=== PATIENT | male | born 1985 | race Caucasian/White ===

== ENCOUNTER 2024-05-15 09:32 | Emergency (ER) | payer OTHER, SELFPAY ==
[2024-05-15 09:47] VITALS: BP 169/104; PULSE 75; RESP 14; TEMP 36.9; O2SAT 98
[2024-05-15 11:42] VITALS: BP 156/108; PULSE 70; RESP 16; TEMP 36.6; O2SAT 100
--- NOTE | 2024-05-15 12:58 | ED.NAVMDI ---
HPI - Nausea/Vomiting/Diarrhea General Chief complaint: Nausea/Vomiting/Diarrhea Stated complaint: N/V Time Seen by Provider: 05/15/24 11:59 History of Present Illness HPI Narrative: 38-year-old otherwise healthy male presenting to the emergency department with symptoms of nausea, vomiting and loose stool. He thinks he had food poisoning for last couple days. Had eggs that he bought a [employer] on Saturday and then several hours later started developing intractable nausea and vomiting as well as loose watery stool. No fever abdominal pain. He states that he has been vomiting since then went to urgent care and received some Zofran which did help his nauseousness but he is still feeling dehydrated. Denies any further diarrhea episodes, no bloody diarrhea. No fever chills. No abdominal pain but states that his GERD has been acting up on him as he is trying to sleep. Patient is requesting hydration. Was swabbed for COVID Flu RSV yesterday negative. Related Data Allergies Allergy/AdvReac Type Severity Reaction Status Date / Time No Known Allergies Allergy Verified 05/15/24 11:46 Review of Systems Review of Systems: as reviewed above in HPI Exam Narrative: GENERAL: [Well-appearing, well-nourished, and in no acute distress.] HEAD: [Normocephalic, atraumatic.] EYES: [PERRLA and EOMI.] ENT: Nares clear, no rhinorrhea or epistaxis. Mucous membranes dry. NECK: Supple. CHEST: [Clear to auscultation. No respiratory distress.] HEART: [Regular rate and rhythm]. No murmur heard. [Normal peripheral pulses.] ABDOMEN: [Soft, nondistended], [nontender], [No rigidity or guarding] EXTREMITIES: Normal range of motion. [No edema.] SKIN: Warm, dry, no rash. NEURO: [No focal deficits]. Alert and oriented [x3.] PSYCH: [Normal mood and affect.] Course Vital Signs Vital signs: Vital Signs Temperature 36.9 C 05/15/24 09:47 Pulse Rate 75 05/15/24 09:47 Respiratory Rate 14 05/15/24 09:47 Blood Pressure 169/104 H 05/15/24 09:47 Pulse Oximetry 98 05/15/24 09:47 Oxygen Delivery Room Air 05/15/24 09:47 Temperature 36.6 C 05/15/24 11:42 Pulse Rate 64 05/15/24 13:54 Respiratory Rate 14 05/15/24 13:54 Blood Pressure 121/65 05/15/24 13:54 Pulse Oximetry 100 05/15/24 13:54 Oxygen Delivery Room Air 05/15/24 11:42 MDM - Nausea/Vomiting/Diarrhea MDM Narrative Medical decision making narrative: 38-year-old otherwise healthy male presenting to the ER with signs and symptoms of viral versus bacterial gastroenteritis. He has had nausea and vomiting for last couple days associated with some loose watery stool that has since resolved. No bloody diarrhea urinary symptoms. No fever. He has a soft nontender nondistended abdomen. He is afebrile here with normal vital signs aside from some stable hypertension. Likely source from with recent eggs that he ate as he had symptoms several hours after eating them. He is otherwise well-appearing but does appear dehydrated. IV was established and he was given hydration with a L of fluid as well as L of D5 LR. He was given Pepcid for his GERD symptoms, did not need any more Zofran as he was feeling better without any persistent nausea. Laboratory studies including CBC and CMP were obtained to make sure there is no electrolyte or kidney/ liver derangements. Patient's laboratory studies are reassuring, he is a minor leukocytosis likely reactive from his gastroenteritis type symptoms. Normal kidney and renal function panel. Normal electrolytes. He felt significantly improved with the hydration and D5 fluids. He is safe and stable for discharge home at this time. Still has prescriptions for Zofran home and does not request any additional medications at this time. Given return precautions and discharge. Medical Records Attestation: I reviewed the patient's medical records. Lab Data Attestation: I reviewed the patient's lab results. 05/15/24 13:12 05/15/24 13:12 Labs: Lab Results 05/15/24 Range/Units 13:12 WBC 11.5 H (4.5-10.0) K/mm3 RBC 5.17 (4.6-6.20) M/mm3 Hgb 15.8 (14.0-18.0) g/dL Hct 46.2 (42.0-52.0) % MCV 89.4 (80-100) fl MCH 30.6 (26-34) pg MCHC 34.2 (32-36) g/dl RDW 11.7 (11.5-14.5) % Plt Count 376 H (150-375) k/mm3 MPV 9.3 (7.4-10.4) fl Immature Gran % (Auto) 0.3 (0-0.5) % Neut % (Auto) 71.5 (45.5-73.1) % Lymph % (Auto) 20.0 (18.3-44.2) % Clay % (Auto) 7.7 (2.6-8.5) % Eos % (Auto) 0.1 (0-4.4) % Baso % (Auto) 0.4 (0.2-1.2) % Lymph # (Auto) 2.30 (0.9-3.2) K/mm3 Clay # (Auto) 0.9 H (0.1-0.6) K/mm3 Eos # (Auto) 0.0 (0-0.3) K/mm3 Baso # (Auto) 0.1 (0.0-0.1) K/mm3 Abs Immat Gran (auto) 0.03 (0.00-0.031) K/mm3 Absolute Neuts (auto) 8.2 H (1.3-6.7) K/mm3 Absolute Nucleated RBC 0.000 (0.0-0.012) K/mm3 Nucleated RBC % 0.0 (0.0-0.2) % Sodium 138 (137-145) mmol/L Potassium 4.1 (3.4-5.0) mmol/L Chloride 96 L (98-107) mmol/L Carbon Dioxide 27 (22-30) mmol/L Anion Gap 15 H (4-12) mmol/L BUN 22 H (9-20) mg/dL Creatinine 0.88 (0.7-1.3) mg/dL Estim Creat Clear Calc 121 ml/min Estimated GFR > 60 (59 - ) Glucose 120 H (65-110) mg/dL Calcium 9.9 (8.4-10.2) mg/dL Magnesium 2.3 (1.6-2.3) mg/dL Total Bilirubin 1.3 (0.2-1.3) mg/dL AST 56 (17-59) U/L ALT 59 H (6-50) U/L Alkaline Phosphatase 76 (38-126) U/L Total Protein 9.0 H (6.3-8.2) g/dL Albumin 5.0 (3.5-5.1) g/dL Discharge Plan Discharge Clinical Impression: Gastroenteritis, Food poisoning Patient Disposition: Home, Self-Care Condition: Stable Instructions: Antibiotic Form, Acute Nausea and Vomiting (ED), Acute Diarrhea (ED) Additional Instructions: Follow-up with your regular doctor on outpatient basis, return with any new or worsening concerns such as inability to tolerate any oral intake, profound nausea, vomiting diarrhea or intractable fever. Patient Language: South Korean Follow-up/Referrals: PHYSICIAN,FLIGHT LINE MECHANIC [Non-Staff] - Time of Disposition: 14:10
[2024-05-15] MEDS: FAMOTIDINE 20 MG/2 ML VIAL IV PUSH (13:16)
[2024-05-15 13:17] LABS: Basophils Absolute Auto 0.1 K/mm3 (0.0-0.1); Basophils Percent Auto 0.4 % (0.2-1.2); Eosinophils Percent Auto 0.1 % (0-4.4); Hematocrit 46.2 % (42.0-52.0); Hemoglobin 15.8 g/dL (14.0-18.0); Immature Granulocyte Absolute 0.03 K/mm3 (0.00-0.031); Immature Granulocyte Percent A 0.3 % (0-0.5); Mean Corpuscular HGB Conc 34.2 g/dl (32-36); Mean Corpuscular Hemoglobin 30.6 pg (26-34); Mean Corpuscular Volume 89.4 fl (80-100); Mean Platelet Volume 9.3 fl (7.4-10.4); Monocytes Absolute Auto 0.9 K/mm3 (0.1-0.6); Monocytes Percent Auto 7.7 % (2.6-8.5); Neutrophils Absolute Auto 8.2 K/mm3 (1.3-6.7); Neutrophils Percent Auto 71.5 % (45.5-73.1); Platelet Count Result 376 k/mm3 (150-375); Red Blood Count 5.17 M/mm3 (4.6-6.20); Red Cell Distribution Width 11.7 % (11.5-14.5); White Blood Count 11.5 K/mm3 (4.5-10.0)
[2024-05-15] MEDS: DEXTROSE 5%/LACTATED RINGERS 1,000 ML 1000 ML IV CONT (13:17)
[2024-05-15 13:29] LABS: Alanine Aminotransferase 59 U/L (6-50); Alkaline Phosphatase 76 U/L (38-126); Anion Gap 15 mmol/L (4-12); Aspartate Amino Transferase 56 U/L (17-59); Bilirubin,Total 1.3 mg/dL (0.2-1.3); Blood Urea Nitrogen 22 mg/dL (9-20); Calcium 9.9 mg/dL (8.4-10.2); Carbon Dioxide 27 mmol/L (22-30); Chloride 96 mmol/L (98-107); Estimated CRCL calculation 121 ml/min; Estimated Glomerular Filt Rate > 60; Glucose 120 mg/dL (65-110); Magnesium 2.3 mg/dL (1.6-2.3); Potassium 4.1 mmol/L (3.4-5.0); Sodium 138 mmol/L (137-145)
--- OUTSIDE RECORDS SUMMARY | 2024-05-15 13:31 | XMS_ITS | Encounter Summary ---
Author Organization [facility] Healthcare Address [address] [place] [id number] Care Team Providers Care Industrial Chemist Name Role Phone No, Physician Primary Care Provider [phone] Reason for Visit * Reason Comments Flu Symptoms Patient here for c/o flu sx that started Encounter Details Date Type Department Care Team (Late st Contact Info) Description 05/14/2024 10:15 AM COMPLIANCE CLERK Office Visit [facility] at [address] [address] Yvonne Campos NP [address] [place] [address] [address] [place] [address] Nausea and vomiting, unspecified vomiting type (Primary Dx) Social History Tobacco Use Types Packs/Day Years Used Date Smoking Tobacco: Never Assessed Personal Safety Answer Date Recorded Have you ever been in or are you currently in a harmful physical or emotional relationship or is someone making you feel afraid or unsafe? Denies 09/27/2023 Sex and Gender Information Value Date Recorded Sex Assigned at Not on file Legal Sex Male 12:11 PM CDT Gender Identity Not on file Sexual Orientation Not on file documented as of this encounter Last Filed Vital Signs Vital Sign Reading Time Taken Comments Blood Pressure 142/78 05/14/2024 9:48 AM COMPLIANCE CLERK Pulse 78 05/14/2024 9:48 AM COMPLIANCE CLERK Temperature 36.8 C (98.2 F) 05/14/2024 9:48 AM COMPLIANCE CLERK Respiratory Rate 20 05/14/2024 9:48 AM COMPLIANCE CLERK Oxygen Saturation 99% 05/14/2024 9:48 AM COMPLIANCE CLERK Inhaled Oxygen Concentration - - Weight 113.4 kg (250 lb) 05/14/2024 9:48 AM COMPLIANCE CLERK Height 182.9 cm (6') 05/14/2024 9:48 AM COMPLIANCE CLERK Body Mass Index 33.91 05/14/2024 9:48 AM COMPLIANCE CLERK documented in this encounter Patient Instructions * Patient Instructions* Yvonne Campos NP - 05/14/2024 10:15 AM COMPLIANCE CLERK If you have no improvement or worsening of your symptoms, please follow up with your Primary Care Provider, [facility] Care and or Emergency Room. I strive to provide you with EXCELLENT service. You may receive a survey after your visit today. If you cannot rate your experience as EXCELLENT, please let us know how we can improve and better meet your needs. Thank you for choosing [facility]! It was my pleasure to see you today, I hope you feel better soon! Yvonne Campos SANE NURSE Vomiting Adult Start with clear fluids if you are able to keep these down then you may slowly advance as tolerated. For vomiting: The steward is to give small amounts at a time. Because the stomach is upset, it will vomit when it fills. Prevent this by giving only 1 inch (3 cm) in a cup at a time. Wait 10 to 15 minutes then give another small amount. This will keep the stomach empty, so you are less likely to vomit.If you do not vomit after this, you can slowly increase the amount in the cup each time. Medicines t o stop vomiting can help. See your doctor for a recheck visit tomorrow or as soon as possible. Call your doctor or return to the emergency department if worse or: 1. Fever (temperature greater than 102??F [39??C]) occurs. 2. There is blood in the stool (poop) or diarrhea or if the stool (poop) is black. 3. Lots of diarrhea occurs. 4. Lots of vomiting occurs or the vomit is bloody or green or looks like chocolate or coffee. 5. The belly looks very full or big. 6. Symptoms of dehydration occurs (eg, inside of the mouth looks sticky, urinating less, weakness, tiredness, pale color, eyes look hollow or sunken). 7. Abdominal pain is worse. LIANCE CLERK * Attachments The following attachments cannot be sent through Care Everywhere. * Acute Nausea and Vomiting (AfterCare(R) Instructions(ER/ED)) ([place]) documented in this encounter Ordered Prescriptions Prescription Sig Dispense Quantity Refills Last Filled Start Date End Date ondansetron ODT (ZOFRAN-ODT) 4 mg disintegrating tabletIndications:Na usea and vomiting, unspecified vomiting type Take 1 tablet (4 mg total) by mouth every 6 (six) hours as needed for nausea or vomiting 20 tablet 05/14/2024 documented in this encounter Progress Notes * Yvonne Campos, [employer] - 05/14/2024 10:15 AM CST Images from the original note were not included. Subjective/Objective Patient ID: Ricky Isaac is a 38 y.o. male. This patient has verbally consented to recording this visit in order to utilize AI technology in generating this note. Chief Complaint Flu Symptoms (Patient here for c/o flu sx that started ) History of Present Illness Ricky Isaac is a 38 year old male who presents with vomiting and inability to keep fluids down. He has been experiencing persistent vomiting and an inability to retain any fluids or solids since Saturday. The vomiting occurs shortly after consuming fluids, and he has been unable to find relief despite attempts to hydrate with Pedialyte popsicles and ice cubes. No fever has been noted, and he has been regularly monitoring his temperature. The symptoms began suddenly with an initial episode of diarrhea on the first day. He describes a sensation of indigestion rather than pain, with a persistent feeling of a 'bubble' in his abdomen. Denies abdominal pain. Attempts to burp often trigger further vomiting. He notes a significant decrease in urination, with urine being very dark in color and infrequent, indicating possible dehydration. He has been using hot water on his stomach to ease discomfort. He has a history of occasional marijuana use but does not believe it triggers his symptoms. He recalls that smoking marijuana helped alleviate symptoms during a previous episode of food poisoning. Review of Systems All other systems reviewed and are negative. Physical Exam HEENT: Fair amount of saliva in throat. SKIN: Improvement in skin color, no longer pale. Physical Exam Vitals reviewed. Constitutional: Appearance: Normal appearance. He is normal weight. He is not ill-appearing. HENT: Head: Normocephalic. Right Ear: Ear canal and external ear normal. A middle ear effusion (moderate serous) is present. Tympanic membrane is not erythematous. Left Ear: Ear canal and external ear normal. A middle ear effusion (moderate serous) is present. Tympanic membrane is not erythematous. Nose: Nose normal. Mouth/Throat: Mouth: Mucous membranes are moist. Pharynx: Oropharynx is clear. Eyes: Pupils: Pupils are equal, round, and reactive to light. Cardiovascular: Rate and Rhythm: Normal rate and regular rhythm. Pulses: Normal pulses. Heart sounds: Normal heart sounds. Pulmonary: Effort: Pulmonary effort is normal. Breath sounds: Normal breath sounds. Abdominal: General: Bowel sounds are normal. Palpations: Abdomen is soft. Tenderness: There is no abdominal tenderness. Musculoskeletal: General: Normal range of motion. Cervical back: Normal range of motion. Skin: General: Skin is warm and dry. Capillary Refill: Capillary refill takes less than 2 seconds. Neurological: General: No focal deficit present. Mental Status: He is alert and oriented to person, place, and time. Mental status is at baseline. Psychiatric: Mood and Affect: Mood normal. Behavior: Behavior normal. Thought Content: Thought content normal. Judgment: Judgment normal. Vitals: 05/14/24 0948 BP: 142/78 Pulse: 78 Resp: 20 Temp: 36.8 ??C (98.2 ??F) SpO2: 99% Weight: 113.4 kg (250 lb) Height: 182.9 cm (6') No results found. No past medical history on file. Current Outpatient Medications: ondansetron ODT (ZOFRAN-ODT) 4 mg disintegrating tablet, Take 1 tablet (4 mg total) by mouth every 6 (six) hours as needed for nausea or vomiting, Disp: 20 tablet, Rfl: 0 No Known Allergies Social History Tobacco Use Smoking status: Not on file Smokeless tobacco: Not on file Substance and Sexual Activity Drug use: Not on file Sexual activity: Not on file Alcohol Use: Not on file No past surgical history on file. Procedures Assessment/Plan Results LABS COVID-19: negative (05/12/2024) Influenza: negative (05/12/2024) Recent Results (from the past 4 hours) POC Influenza A/B, COVID-19 antigen Collection Time: 05/14/24 9:55 AM Result Value Ref Range Influenza A Ag, POC Negative Negative Influenza B Ag, POC Negative Negative COVID-19 Ag POC Presumptive Negative Presumptive Negative, Invalid Assessment & Plan Acute Gastroenteritis Sudden onset of vomiting and diarrhea, possibly due to food poisoning or norovirus. No fever. Dark urine and decreased frequency of urination suggestive of dehydration. No abdominal pain, but reportsof indigestion-like discomfort. -Prescribe Zofran ODT, 1-2 tabs every 6-8 hours as needed for nausea/vomiting. -Encourage fluid intake, use of Pedialyte popsicles. -If unable to keep down fluids in the next 24 hours, consider hospital visit for IV fluids and electrolyte check. Possible Cannabinoid Hyperemesis Syndrome History of occasional marijuana use. No current symptoms suggestive of this syndrome, but discussedpotential for this condition to cause severe vomiting. -Advised to avoid marijuana use if symptoms of severe vomiting occur in the future. -Consider use of capsaicin rub on abdomen if symptoms suggestive of this syndrome occur. Diagnoses and all orders for this visit: Nausea and vomiting, unspecified vomiting type (Primary) - POC Influenza A/B, COVID-19 antigen - ondansetron ODT (ZOFRAN-ODT) 4 mg disintegrating tablet; Take 1 tablet (4 mg total) by mouth every 6 (six) hours as needed for nausea or vomiting Disposition Treatment plan including expectations, follow up, and return precautions discussed with patient/parent, verbalizes understanding. Medication dosage, use, and potential adverse reactions discussed with patient/parent. Advised to follow up with PCP if symptoms do not resolve as expected or sooner if condition worsens. Signs/symptoms warranting ER evaluation reviewed. Patient and/or guardian was given an opportunity to ask questions, questions answered. Yvonne Campos NP LIANCE CLERK documented in this encounter Plan of Treatment Not on file documented as of this encounter Procedures Procedure Name Priority Date/Time Associated Diagnosis Comments POC INFLUENZA A/B, COVID-19 ANTIGEN Routine 05/14/2024 9:55 AM COMPLIANCE CLERK Nausea and vomiting, unspecified vomiting type documented in this encounter Results * POC Influenza A/B, COVID-19 antigen (05/14/2024 9:55 AM COMPLIANCE CLERK) Influenza A Ag, POC Negative Negative [facility] Influenza B Ag, POC Negative Negative [facility] COVID-19 Ag POC Presumptive Negative Presumptive Negative, Invalid [facility] Nasopharyngeal 05/14/2024 9: 55 AM COMPLIANCE CLERK us Yvonne Campos [employer] POINT OF CARE TEST ORDERAB LES Final Result Performing Organization Address City/State/[facility] Co de Phone Number [facility] [address] documented in this encounter Visit Diagnoses Diagnosis Nausea and vomiting, unspecified vomiting type- Primary documented in this encounter Care Teams Industrial Chemist Relationship Specialty Start Date End Date No, Physician PCP - General 09/27/23 documented as of this encounter
--- OUTSIDE RECORDS SUMMARY | 2024-05-15 13:31 | XMS_ITS | Referral Summary ---
Author Organization [facility] Address [address] [place] [address] Care Team Providers Care Hostage Negotiator Name Role Phone No, Physician Primary Care Provider [phone] Encounters Date Type Department Care Team Description 05/14/2024 10:15 AM RESIDENTIAL ROOFER Office Visit [facility] at [address] [address] Yvonne Campos NP Nausea and vomiting, unspecified vomiting type (Primary Dx) from Last 3 Months Allergies No known active allergies Medications ondansetron ODT (ZOFRAN-ODT) 4 mg disintegrating tabletIndications:N ausea and vomiting, unspecified vomiting type Take 1 tablet (4 mg total) by mouth every 6 (six) hours as needed for nausea or vomiting 20 tablet Active Active Problems No known active problems Social History Tobacco Use Types Packs/Day Years [...] on file Sexual Orientation Not on file Last Filed Vital Signs Vital Sign Reading Time Taken Comments Blood Pressure 142/78 05/14/2024 9:48 AM RESIDENTIAL ROOFER Pulse 78 05/14/2024 9:48 AM RESIDENTIAL ROOFER Temperature 36.8 C (98.2 F) 05/14/2024 9:48 AM RESIDENTIAL ROOFER Respiratory Rate 20 05/14/2024 9:48 AM RESIDENTIAL ROOFER Oxygen Saturation 99% 05/14/2024 9:48 AM RESIDENTIAL ROOFER Inhaled Oxygen Concentration - - Weight 113.4 kg (250 lb) 05/14/2024 9:48 AM RESIDENTIAL ROOFER Height 182.9 cm (6') 05/14/2024 9:48 AM RESIDENTIAL ROOFER Body Mass Index 33.91 05/14/2024 9:48 AM RESIDENTIAL ROOFER Plan of Treatment Not on file Procedures Procedure Name Priority Date/Time Associated Diagnosis Comments POC INFLUENZA A/B, COVID-19 ANTIGEN Routine 05/14/2024 9:55 AM RESIDENTIAL ROOFER Nausea and vomiting, unspecified vomiting type from Last 3 Months Results * POC Influenza A/B, COVID-19 antigen (05/14/2024 9:55 AM RESIDENTIAL ROOFER) Influenza A Ag, POC Negative Negative [facility] Influenza B Ag, POC Negative Negative [facility] COVID-19 Ag POC Presumptive Negative Presumptive Negative, Invalid [facility] Nasopharyngeal 05/14/2024 9: 55 AM RESIDENTIAL ROOFER Yvonne Campos NP POINT OF CARE TEST ORDERAB LES Final Result Performing Organization Address City/State/[facility] Co de Phone Number [facility] [place] [address], [facility] from Last 3 Months Insurance [facility] [employer] Care Teams Hostage Negotiator Relationship Specialty Start Date End Date No, Physician PCP - General 09/27/23
--- OUTSIDE RECORDS SUMMARY | 2024-05-15 13:31 | XMS_ITS | Clinical Summary ---
Author Organization [facility] Address [address] [address] Care Team Providers Care Caponizer Name Role Phone Unavailable Primary Care Provider Unavailabl e Allergies No known active allergies Medications No known medications Active Problems No known active problems Encounters Date Type Department Care Team Description 04/29/2024 External Device Data [facility] ABSTRACTION Provider, Abstract 04/28/2024 External Device Data [facility] Provider, Abstract 04/21/2024 External Device Data [facility] Provider, Abstract from Last 3 Months Social History Tobacco Use Types Packs/Day Years Used Date Smoking Tobacco: Never Assessed Sex and Gender Information Value Date Recorded Sex Assigned at Not on file Legal Sex Male 2:25 PM CDT Gender Identity Not on file Sexual Orientation Not on file Last Filed Vital Signs Vital Sign Reading Time Taken Comments Blood Pressure 141/89 07/07/2023 2:31 PM CDT Pulse 72 07/07/2023 2:31 PM CDT Temperature 36.5 C (97.7 F) 07/07/2023 2:31 PM CDT Respiratory Rate 20 07/07/2023 2:31 PM CDT Oxygen Saturation 99% 07/07/2023 2:31 PM CDT Inhaled Oxygen Concentration - - Weight 101.2 kg (223 lb) 07/07/2023 2:31 PM CDT Height 182.9 cm (6') 07/07/2023 2:31 PM CDT Body Mass Index 30.24 07/07/2023 2:31 PM CDT Plan of Treatment Health Maintenance Due Date Last Done Comments Pre-Diabetes and Diabetes Screening 1984 DTAP/TDAP/TD VACCINES (1 - Tdap) 12/20/2003 HEPATITIS B VACCINES (1 of 3 - 19+ 3-dose series) 12/20/2003 INFLUENZA VACCINE (#1) 2023 HPV VACCINES Aged Out No longer eligi ble based on patient's age to complete this topic
--- OUTSIDE RECORDS SUMMARY | 2024-05-15 13:31 | XMS_ITS | Clinical Summary ---
Author Organization [facility] Address [address] [place] [address] Care Team Providers Care Machine Container Washer Name Role Phone No, Physician Primary Care Provider [phone] Allergies No known active allergies Medications ondansetron ODT (ZOFRAN-ODT) 4 mg disintegrating tabletIndications:N ausea and vomiting, unspecified vomiting type Take 1 tablet (4 mg total) by mouth every 6 (six) hours as needed for nausea or vomiting 20 tablet Active Active Problems No known active problems Encounters Date Type Department Care Team Description 05/14/2024 10:15 AM CABLE TELEVISION LINE TECHNICIAN Office Visit [facility] [address] [address] Yvonne Campos NP Nausea and vomiting, unspecified vomiting type (Primary Dx) from Last 3 Months Social History Tobacco [...] on file Sexual Orientation Not on file Obstetrics History Last Filed Vital Signs Vital Sign Reading Time Taken Comments Blood Pressure 142/78 05/14/2024 9:48 AM CABLE TELEVISION LINE TECHNICIAN Pulse 78 05/14/2024 9:48 AM CABLE TELEVISION LINE TECHNICIAN Temperature 36.8 C (98.2 F) 05/14/2024 9:48 AM CABLE TELEVISION LINE TECHNICIAN Respiratory Rate 20 05/14/2024 9:48 AM CABLE TELEVISION LINE TECHNICIAN Oxygen Saturation 99% 05/14/2024 9:48 AM CABLE TELEVISION LINE TECHNICIAN Inhaled Oxygen Concentration - - Weight 113.4 kg (250 lb) 05/14/2024 9:48 AM CABLE TELEVISION LINE TECHNICIAN Height 182.9 cm (6') 05/14/2024 9:48 AM CABLE TELEVISION LINE TECHNICIAN Body Mass Index 33.91 05/14/2024 9:48 AM CABLE TELEVISION LINE TECHNICIAN Plan of Treatment Health Maintenance Due Date Last Done Comments Depression Screening 1984 Hepatitis C Screening 1984 DTaP/Tdap/Td Vaccine (1 - Tdap) 12/20/1995 Varicella Vaccines (1 of 2 - 13+ 2-dose series) 1997 Hepatitis B Screening 2002 Regular Well Visit/Exam 18-64 2002 Influenza Vaccine (#1) 2023 HPV Vaccines Aged Out No longer eligi ble based on patient's age to complete this topic Pneumococcal vaccine <65 Aged Out No longer eligible based on patient's age to complete this topic Procedures Procedure Name Priority Date/Time Associated Diagnosis Comments POC INFLUENZA A/B, COVID-19 ANTIGEN Routine 05/14/2024 9:55 AM CABLE TELEVISION LINE TECHNICIAN Nausea and vomiting, unspecified vomiting type from Last 3 Months Results * POC Influenza A/B, COVID-19 antigen (05/14/2024 9:55 AM CABLE TELEVISION LINE TECHNICIAN) Influenza A Ag, POC Negative Negative [facility] Influenza B Ag, POC Negative Negative [facility] COVID-19 Ag POC Presumptive Negative Presumptive Negative, Invalid [facility] Nasopharyngeal 05/14/2024 9: 55 AM CABLE TELEVISION LINE TECHNICIAN Yvonne Campos NP POINT OF CARE TEST ORDERAB LES Final Result Performing Organization Address City/State/[facility] Co de Phone Number [facility] [address] [place] [address], [facility] from Last 3 Months Insurance [facility] [employer] Care Teams Machine Container Washer Relationship Specialty Start Date End Date No, Physician PCP - General 09/27/23
[2024-05-15] MEDS: LACTATED RINGERS 1,000 ML 999 ML IV CONT (13:53)
[2024-05-15 13:54] VITALS: BP 121/65; PULSE 64; RESP 14; O2SAT 100
[2024-05-15 14:26] VITALS: BP 139/80; PULSE 76; RESP 15; TEMP 36.6; O2SAT 100
== END 2024-05-15 14:28 | disposition home or self-care (01) ==
PROVIDERS: Emergency Provider Student in an Organized Health Care Education/Training Program
DX: A05.9 Bacterial foodborne intoxication, unspecified (principal)
CPT/HCPCS: 36415; 80053; 83735; 85025; 96361; 96374; 99284; J7120; J7121